=== PATIENT | female | born 1975 | race African-American/Black ===

== ENCOUNTER → 2020-11-30 08:24 | Outpatient (CLI) | payer OTHER, SELFPAY ==
[2020-11-30] MEDS: COVID-19 VACC #1, MRNA(MOD) 100 MCG/0.5 ML VIAL IM (08:34)
== END ==
PROVIDERS: Family Provider Nurse Practitioner Family; PCP Nurse Practitioner Family; Visit Provider Internal Medicine
DX: Z23 Encounter for immunization (principal)
CPT/HCPCS: 0011A; 91301

== ENCOUNTER → 2020-12-28 08:20 | Outpatient (CLI) | payer OTHER, SELFPAY ==
[2020-12-28] MEDS: COVID-19 VACC #2, MRNA(MOD) 100 MCG/0.5 ML VIAL IM (08:26)
== END ==
PROVIDERS: Family Provider Nurse Practitioner Family; PCP Nurse Practitioner Family; Visit Provider Internal Medicine
DX: Z23 Encounter for immunization (principal)
CPT/HCPCS: 0012A; 91301

== ENCOUNTER → 2024-04-08 07:15 | Outpatient (CLI) | payer OTHER, SELFPAY ==
[2024-04-08 08:50] LABS: HEMOLYSIS < 15 (0-50); Iron 13 ug/dL (37-170)
[2024-04-08 08:56] LABS: Add Manual Diff / Slide Review NO; Basophils Absolute Auto 100 /uL (0-100); Basophils Percent Auto 1.7 % (0-2); Eosinophils Absolute Auto 100 /uL (0-450); Eosinophils Percent Auto 1.5 % (2-4); Lymphocytes Absolute Auto 1700 /uL (1100-4500); Lymphocytes Percent Auto 45.7 % (25-40); Mean Corpuscular HGB Conc 26.8 % (30-36); Mean Corpuscular Hemoglobin 13.8 PG (26-34); Mean Corpuscular Volume 51.5 fL (80-100); Monocytes Absolute Auto 300 /uL (0-900); Monocytes Percent Auto 9.1 % (3-14); Neutrophils Absolute Auto 1600 /uL (1500-7000); Platelet Count 110 X10^3/uL (150-400); Red Blood Cell Count 3.09 X10^6/uL (4.0-5.2); Red Cell Distribution Width 21.1 % (11.6-14.8); White Blood Cell Count 3.8 X10^3/uL (4.5-11.0)
[2024-04-08 08:58] LABS: Cholesterol 133 mg/dL (140-199); HDL Cholesterol 59 mg/dL (40-60); LDL Cholesterol Calculated 66 mg/dL (<100); Triglycerides 42 mg/dL (35-150)
[2024-04-08 09:02] LABS: Hematocrit 15.9 % (36-46); Hemoglobin 4.3 g/dL (12.0-16.0)
[2024-04-08 09:03] LABS: Percent Iron Saturation 2 % (15-50); Total Iron Binding Capacity 525 ug/dL (265-497); Transferrin 419 mg/dL (206-381)
[2024-04-08 09:05] LABS: Anisocytosis 2+; Microcytosis 3+
[2024-04-08 09:06] LABS: Hypochromasia 3+
[2024-04-08 09:07] LABS: Ovalocytes 1+; RBC Morphology See
[2024-04-08 09:36] LABS: Ferritin 3 ng/mL (6-137)
== END ==
PROVIDERS: Family Provider Nurse Practitioner Family; PCP Family Medicine; Referring Provider Family Medicine; Visit Provider Family Medicine
DX: R53.83 Other fatigue (principal); Z13.220 Encounter for screening for lipoid disorders
CPT/HCPCS: 36415; 80061; 82728; 83540; 83550; 85025

== ENCOUNTER 2024-05-17 12:53 | Emergency (ER) | payer OTHER, SELFPAY ==
[2024-05-17 12:58] VITALS: BP 93/57; PULSE 76; RESP 16; TEMP 36.8; O2SAT 99; BMI 28.5
[2024-05-17 13:10] VITALS: BP 100/57
[2024-05-17 13:11] VITALS: PULSE 87; RESP 19; O2SAT 100
--- NOTE | 2024-05-17 13:11 | ED.ALLEREA ---
HPI - Allergic Reaction General Chief complaint: Allergic Reaction Stated complaint: Allergic Reaction Time Seen by Provider: 05/17/24 13:10 Source: patient Mode of arrival: Wheelchair History of Present Illness HPI narrative: Patient is a 49-year-old female past medical history of iron-deficiency anemia comes into the ED from iron infusion clinic for evaluation of allergic reaction. She states that she had her 1st iron infusion at around 10:00 a.m. today, states that she started having some swelling to her bilateral upper and lower extremities but denies any difficulty breathing denies any other issues. States that she has only known allergy of bee stings but denies any known bee stings. States that at the infusion center she was given 125 Solu-Medrol and 50 of Benadryl. At time of initial evaluation patient stating that her swelling is still there but is slightly improved, patient is speaking full sentences protecting airway no voice change no trismus no stridor tolerating secretions. Is complaining of some mild nausea. Related Data Home Medications Medication Instructions Recorded Confirmed cetirizine 10 mg capsule (Zyrtec) 10 mg PO DAILY PRN 03/29/24 04/09/24 Previous Rx's Medication Instructions Recorded sodium ferric gluconate complex in 250 mg IV QWEEK 4 doses 04/19/24 sucrose 62.5 mg/5 mL intravenous (Ferrlecit) epinephrine 0.3 mg/0.3 mL 0.3 mg (0.3 mL) IM Q5-15M PRN 05/17/24 injection, auto-injector (EpiPen) anaphylaxis #2 ea famotidine 20 mg tablet (Pepcid) 20 mg PO DAILY 5 days #5 tabs 05/17/24 prednisone 20 mg tablet 40 mg (2 x 20 mg) PO DAILY 5 days 05/17/24 #10 tabs Allergies Allergy/AdvReac Type Severity Reaction Status Date / Time No Known Drug Allergies Allergy Verified 04/09/24 09:02 Review of Systems Review of Systems Narrative: General: Allergic reaction, swelling to extremities HEENT: Denies headache, eye drainage, eye irritation, head trauma, sore throat, voice change Cardiovascular: Denies any chest pain, palpitations, shortness of breath, tachycardia Respiratory: Denies any shortness of breath, cough, wheeze, stridor GI/: Denies any abdominal pain, nausea, vomiting, diarrhea, bright red blood per rectum, melanotic stools, urinary frequency, urinary retention, dysuria, hematuria MSK: Denies any joint pain, muscle pains, swelling Skin: Denies any rashes, lesions, discoloration Neuro: Denies any headache, lightheadedness, dizziness, fainting, weakness Psych: Denies SI/HI Patient History Medical History (Updated 05/17/24 @ 14:14 by Ghulam Joel DO) Hypochromic microcytic anemia Systolic ejection murmur Social History Smoking Status: Former smoker Smoking Status: Former smoker alcohol intake frequency: a few times a month Substance Use Type: does not use Exam Narrative Exam Narrative: General: Cooperative, comfortable, well-developed, not in acute distress, there is mild edema noted to bilateral upper and lower extremity but no urticarial rashes noted HEENT: Normocephalic, atraumatic, PERRLA, normal sclera, eyelids normal, posterior oropharynx is clear without any signs of obstruction uvula is midline speaking in full sentences protecting airway and unfortunately no stridor no trismus tolerating secretions Neck: Active full range of motion, atraumatic Chest: Normal to inspection, negative crepitus, no overlying erythema ecchymosis Respiratory: Normal respiratory effort, not in acute respiratory distress, clear to auscultation bilaterally negative cough, wheeze, tachypnea, rhonchi, rales Cardiology: Regular rate rhythm negative gallop, murmur, rubs GI/: Normal to inspection, soft, nonrigid, no tenderness to palpation, exam deferred MSK: Full range of active range of motion of all 4 extremities, atraumatic Skin: No rashes lesions noted Neuro: Alert awake oriented x3, moves all 4 extremities spontaneously, cranial nerves intact, able to answer all questions appropriately follows commands appropriately Psych: Cooperative, negative suicidal or homicidal ideations Initial Vital Signs Initial Vital Signs: Vital Signs Temperature 98.3 F 05/17/24 12:58 Pulse Rate 76 05/17/24 12:58 Respiratory Rate 16 05/17/24 12:58 Blood Pressure 93/57 L 05/17/24 12:58 Pulse Oximetry 99 05/17/24 12:58 Oxygen Delivery Method Room Air 05/17/24 12:58 Course Orders Ordered: ED Orders 05/17/24 13:13 CBC Auto Diff [Complete Blood Count AUTO DIFF] Stat CMP [Comprehensive Metabolic Panel] Stat Famotidine (Famotidine 20 Mg/2 Ml Vial) [address] Last Admin: 05/17/24 13:19 Dose: 20 mg Documented By: Discontinued Medications Ondansetron HCl (Ondansetron 4 Mg/2 Ml Inj) 4 mg IV NOW ONE Stop: 05/17/24 13:13 Last Admin: 05/17/24 13:19 Dose: 4 mg Documented By: Vital Signs Vital signs: Vital Signs - 8 hr 05/17/24 12:58 05/17/24 13:10 05/17/24 13:11 Temperature 98.3 F Pulse Rate 76 87 Respiratory Rate 16 19 Blood Pressure 93/57 L 100/57 L Pulse Oximetry 99 100 Oxygen Delivery Method Room Air 05/17/24 13:30 05/17/24 13:30 05/17/24 14:00 Temperature Pulse Rate 70 Respiratory Rate 13 Blood Pressure 104/70 106/60 Pulse Oximetry 100 Oxygen Delivery Method 05/17/24 14:00 Temperature Pulse Rate 71 Respiratory Rate 17 Blood Pressure Pulse Oximetry 100 Oxygen Delivery Method MDM - Allergic Reaction Lab Data 05/17/24 13:13 05/17/24 13:13 Labs: Lab Results 05/17/24 Range/Units 13:13 WBC 10.7 (4.5-11.0) X10^3/uL RBC 5.15 (4.0-5.2) X10^6/uL Hgb 7.7 L (12.0-16.0) g/dL Hct 28.0 L (36-46) % MCV 54.4 L (80-100) fL MCH 15.0 L (26-34) PG MCHC 27.5 L (30-36) % RDW 23.4 H (11.6-14.8) % Plt Count 73 L (150-400) X10^3/uL Neut % (Auto) Not Reportable Lymph % (Auto) Not Reportable [place]val % (Auto) Not Reportable Eos % (Auto) Not Reportable Baso % (Auto) Not Reportable Lymph # (Auto) Not Reportable [place] # (Auto) Not Reportable Baso # (Auto) Not Reportable Total Counted 100 Seg Neutrophils % 44.0 (38-70) % Lymphocytes % (Manual) 51.0 H (25-45) % Monocytes % (Manual) 2.0 (2-11) % Eosinophils % (Manual) 1.0 L (2-4) % Basophils % (Manual) 2.0 H (0-1) % Neutrophils # (Manual) 4708 (6306-2871) /uL RBC Morphology See below Hypochromasia 3+ H Anisocytosis 3+ H Microcytosis 2+ H Target Cells 2+ H Acanthocytes (Spur) 1+ H Sodium 135 L (137-145) mmol/L Potassium 3.9 (3.4-5.1) mmol/L Chloride 107 (98-107) mmol/L Carbon Dioxide 19 L (22-32) mmol/L BUN 11 (7-17) mg/dL Creatinine 0.75 (0.52-1.04) mg/dL Estimated GFR > 60 (>60) mL/min BUN/Creatinine Ratio 14.7 (6-22) Glucose 149 H (70-100) mg/dL Calcium 9.1 (8.4-10.2) mg/dL Total Bilirubin 0.4 (0.2-1.3) mg/dL AST 25 (14-36) IU/L ALT 15 (<35) IU/L Alkaline Phosphatase 50 (38-126) U/L Total Protein 7.0 (6.3-8.2) g/dL Albumin 3.9 (3.5-5.0) g/dL Globulin 3.1 (1.7-4.1) g/dL Albumin/Globulin Ratio 1.3 (1.0-2.8) MDM Narrative Medical decision making narrative: Patient is a 49-year-old female with history of iron deficient anemia comes in for allergic reaction, patient just had her 1st iron transfusion prior to arrival, did receive Solu-Medrol and Benadryl, states that when she was getting the transfusion she started having urticarial rash and swelling. She presents here with persistent swelling to her extremities but no rash no difficulty breathing, lab work showing persistent iron deficient anemia but not requiring any transfusion. Patient will be sent home with EpiPen Solu-Medrol Pepcid Benadryl for allergic reaction she is safe for discharge home with outpatient follow-up Discharge Plan Departure Patient Disposition: Home Clinical Impression: Allergic reaction Instructions: Epinephrine Injection Activity Restrictions/Additional Instructions: Please follow-up with your primary care doctor Please read the discharge instructions sheet carefully and bring all papers to all doctor follow-up visits, as it may contain information that your doctor may want to see. Disease processes change and evolve, if your symptoms worsen or if you develop any new symptoms that are concerning to you please return for evaluation. Your evaluation today does not show any evidence of any life-threatening/serious illnesses requiring admission to the hospital or surgery. Please follow-up with your doctor for re-evaluation in approximately 1 day. Seek immediate medical attention for any worrisome symptoms. Prescriptions: New prednisone 20 mg tablet 40 mg PO DAILY 5 Days Qty: 10 0RF famotidine [Pepcid] 20 mg tablet 20 mg PO DAILY 5 Days Qty: 5 0RF epinephrine [EpiPen] 0.3 mg/0.3 mL auto-injector 0.3 mg IM Q5-15M PRN (Reason: anaphylaxis) Qty: 2 0RF Rx Instructions: do not exceed 3 doses per episode No Action Zyrtec 10 mg capsule 10 mg PO DAILY PRN sodium ferric gluconat-sucrose [Ferrlecit] 62.5 mg/5 mL solution 250 mg IV QWEEK Rx Instructions: Give IV over 1 hour Referrals: Chantale Andersen MD [Primary Care Provider] - Stand Alone Forms: Patient Portal/API
[2024-05-17] MEDS: ONDANSETRON 4 MG/2 ML INJ IV (13:19)
[2024-05-17] MEDS: FAMOTIDINE 20 MG/2 ML VIAL IV (13:19)
[2024-05-17 13:22] LABS: Hemoglobin 7.7 g/dL (12.0-16.0); Mean Corpuscular HGB Conc 27.5 % (30-36); Mean Corpuscular Volume 54.4 fL (80-100); Platelet Count 73 X10^3/uL (150-400); Red Blood Cell Count 5.15 X10^6/uL (4.0-5.2); Red Cell Distribution Width 23.4 % (11.6-14.8); White Blood Cell Count 10.7 X10^3/uL (4.5-11.0)
[2024-05-17 13:23] LABS: Add Manual Diff / Slide Review YES
[2024-05-17 13:30] VITALS: BP 104/70; PULSE 70; RESP 13; O2SAT 100
[2024-05-17 13:51] LABS: Alanine Aminotransferase 15 IU/L (<35); Albumin 3.9 g/dL (3.5-5.0); Albumin Globulin Ratio 1.3 (1.0-2.8); Alkaline Phosphatase 50 U/L (38-126); Aspartate Aminotransferase 25 IU/L (14-36); BUN Creatinine Ratio 14.7 (6-22); Bilirubin Total 0.4 mg/dL (0.2-1.3); Blood Urea Nitrogen 11 mg/dL (7-17); Calcium 9.1 mg/dL (8.4-10.2); Carbon Dioxide 19 mmol/L (22-32); Chloride 107 mmol/L (98-107); Estimated Glomerular Filt Rate > 60 mL/min (>60); Globulin 3.1 g/dL (1.7-4.1); Glucose 149 mg/dL (70-100); HEMOLYSIS < 15 (0-50); Potassium 3.9 mmol/L (3.4-5.1); Sodium 135 mmol/L (137-145)
[2024-05-17 14:00] VITALS: BP 106/60; PULSE 71; RESP 17; O2SAT 100
[2024-05-17 14:01] LABS: Neutrophils Absolute Manual 4708 /uL (3000-5900); Total Cells Counted 100
[2024-05-17 14:03] LABS: Anisocytosis 3+; Hypochromasia 3+; Target Cells 2+
[2024-05-17 14:06] LABS: Acanthocytes 1+; Microcytosis 2+
== END 2024-05-17 14:33 | disposition home or self-care (01) ==
PROVIDERS: Emergency Provider Student in an Organized Health Care Education/Training Program; Family Provider Nurse Practitioner Family; PCP Family Medicine
DX: R21 Rash and other nonspecific skin eruption (principal); T45.4X5A Adverse effect of iron and its compounds, initial encounter
CPT/HCPCS: 80053; 85007; 85025; 96365; 96366; 96375; 99283; 99284; J1200; J2405; J2916; J2919

== ENCOUNTER → 2024-05-20 07:20 | Outpatient (CLI) | payer OTHER, SELFPAY ==
[2024-05-20 08:24] LABS: Add Manual Diff / Slide Review NO; Basophils Absolute Auto 100 /uL (0-100); Basophils Percent Auto 1.2 % (0-2); Eosinophils Absolute Auto 0 /uL (0-450); Eosinophils Percent Auto 0.2 % (2-4); Lymphocytes Absolute Auto 3100 /uL (1100-4500); Lymphocytes Percent Auto 32.8 % (25-40); Mean Corpuscular HGB Conc 28.4 % (30-36); Mean Corpuscular Hemoglobin 16.1 PG (26-34); Mean Corpuscular Volume 56.5 fL (80-100); Monocytes Absolute Auto 500 /uL (0-900); Monocytes Percent Auto 5.3 % (3-14); Neutrophils Absolute Auto 5800 /uL (1500-7000); Neutrophils Percent Auto 60.5 % (50-75); Platelet Count 162 X10^3/uL (150-400); Red Blood Cell Count 3.55 X10^6/uL (4.0-5.2); Red Cell Distribution Width 23.1 % (11.6-14.8); White Blood Cell Count 9.6 X10^3/uL (4.5-11.0)
[2024-05-20 08:28] LABS: Hemoglobin 5.7 g/dL (12.0-16.0)
[2024-05-20 10:22] LABS: Anisocytosis 3+; Microcytosis 3+; Ovalocytes 2+; Platelet Estimate Decreased on smear
[2024-05-20 10:23] LABS: Hypochromasia 3+; Spherocytes 1+
== END ==
PROVIDERS: Family Provider Nurse Practitioner Family; PCP Family Medicine; Referring Provider Family Medicine; Visit Provider Family Medicine
DX: D64.9 Anemia, unspecified (principal); R79.89 Other specified abnormal findings of blood chemistry
CPT/HCPCS: 36415; 85025

== ENCOUNTER → 2024-08-04 07:39 | Outpatient (CLI) | payer OTHER, SELFPAY ==
[2024-08-04 08:57] LABS: HEMOLYSIS < 15 (0-50); Iron 45 ug/dL (37-170)
[2024-08-04 08:59] LABS: Add Manual Diff / Slide Review NO; Basophils Absolute Auto 100 /uL (0-100); Basophils Percent Auto 1.9 % (0-2); Eosinophils Absolute Auto 100 /uL (0-450); Eosinophils Percent Auto 3.1 % (2-4); Hemoglobin 10.9 g/dL (12.0-16.0); Lymphocytes Absolute Auto 1200 /uL (1100-4500); Lymphocytes Percent Auto 33.3 % (25-40); Mean Corpuscular HGB Conc 31.2 % (30-36); Mean Corpuscular Hemoglobin 24.4 PG (26-34); Mean Corpuscular Volume 78.3 fL (80-100); Monocytes Absolute Auto 200 /uL (0-900); Monocytes Percent Auto 6.3 % (3-14); Neutrophils Absolute Auto 2000 /uL (1500-7000); Neutrophils Percent Auto 55.4 % (50-75); Platelet Count 146 X10^3/uL (150-400); Red Blood Cell Count 4.47 X10^6/uL (4.0-5.2); Red Cell Distribution Width 27.5 % (11.6-14.8); White Blood Cell Count 3.6 X10^3/uL (4.5-11.0)
[2024-08-04 09:10] LABS: Percent Iron Saturation 13 % (15-50); Total Iron Binding Capacity 342 ug/dL (265-497); Transferrin 319 mg/dL (206-381)
[2024-08-04 09:31] LABS: Microcytosis 1+; Ovalocytes 1+
[2024-08-04 09:32] LABS: Anisocytosis 3+; Hypochromasia 1+
== END ==
PROVIDERS: Family Provider Nurse Practitioner Family; PCP Family Medicine; Referring Provider Family Medicine; Visit Provider Family Medicine
DX: D50.9 Iron deficiency anemia, unspecified (principal)
CPT/HCPCS: 36415; 83540; 83550; 85025

== ENCOUNTER → 2024-08-26 06:54 | Outpatient (CLI) | payer OTHER, SELFPAY ==
--- NOTE | 2024-08-26 06:55 | DI.US.S_ITS ---
PROCEDURE: US PELVIC COMPLETE INDICATIONS: Menorhagia, assess for fibroids etc TECHNIQUE: Real-time scanning was performed of the pelvic organs, with image documentation. Additional endovaginal scanning was necessary due to incomplete visualization of the adnexal and endometrial structures by transabdominal scanning. COMPARISON: None. FINDINGS: Uterus: Uterus is retroverted and enlarged in size at 13.6 x 10.9 x 8.5 cm. The myometrium is heterogeneous. The endometrium measures 15 mm combined thickness. There are 2 polyps within the endometrium, measuring 0.8 x 0.9 x 0.6 cm and 1.0 x 0.9 x 0.9 cm. Additionally, there are multiple uterine fibroids. Most notably, there is an intramural fibroid with a submucosal interface measuring 7.9 x 8.2 x 6.4 cm. Ovaries: The right ovary measures 3.9 x 3.0 x 1.7 cm, with a calculated ovarian volume of 10 cc. The left ovary measures 3. 0.2 x 2.1 x 1.6 cm, with a calculated ovarian volume of 6 cc. The ovaries have a normal sonographic appearance. Less than 12 follicles can be seen in each ovary. No adnexal masses are seen. Other: No pathologic free abdominal or pelvic fluid. IMPRESSION: Enlarged uterus containing multiple uterine fibroids, largest measuring 8.2 x 7.9 x 6.4 cm, with a submucosal interface. Additionally, there are 2 filling defects within the endometrium, concerning for polyps. Tissue sampling should be considered. We strive to produce accurate, complete, and clear reports of imaging services. To assist us in improving patient care, this report was composed using standard report templates and voice recognition software. Therefore, it may contain abnormal punctuation, insertions and/or omissions. Occasional wrong-word or sound-alike substitutions may occur. Though we review the report and make efforts to correct it, we do recommend that the report be read carefully in proper context to recognize any text inaccuracies. Dictated by: Alejandro Atkinson M.D. on 08/26/2024 at 17:57 Approved by: Alejandro Atkinson M.D. on 08/26/2024 at 17:59
== END ==
PROVIDERS: Family Provider Nurse Practitioner Family; PCP Family Medicine; Referring Provider Family Medicine; Visit Provider Family Medicine
DX: N92.0 Excessive and frequent menstruation with regular cycle (principal); D25.1 Intramural leiomyoma of uterus
CPT/HCPCS: 76830; 76856

== ENCOUNTER 2024-11-04 10:04 | Day surgery (SDC) | payer OTHER, SELFPAY ==
[2024-11-04 10:28] VITALS: BP 137/77; PULSE 85; RESP 16; TEMP 37.2; O2SAT 100
[2024-11-04] MEDS: LACTATED RINGERS 1,000 ML 42 ML IV (10:35)
--- NOTE | 2024-11-04 10:49 | P.HP_ITS ---
History of Present Illness History of Present Illness Date Patient Seen: 11/04/24 Time Patient Seen: 10:49 Chief complaint: Colonoscopy Narrative: García is a 49-year-old woman on for a colonoscopy today. She did have a colonoscopy many years ago and a polyp was removed. She has a family history of colon cancer. Her father of colon cancer at age 49. [facility] Medical History (Updated 11/04/24 @ 10:50 by Forest Grant MD) Menorrhagia Hypochromic microcytic anemia Systolic ejection murmur Social History Smoking Status: Former smoker Meds Home Medications and Allergies Home Medications Medication Instructions Recorded Confirmed Type cetirizine 10 mg capsule (Zyrtec) 10 mg PO DAILY PRN allergies 03/29/24 11/04/24 History epinephrine 0.3 mg/0.3 mL 0.3 mg (0.3 mL) IM Q5-15M PRN 05/17/24 11/04/24 Rx injection, auto-injector (EpiPen) anaphylaxis #2 ea iron sucrose 200 mg iron/10 mL 200 mg (10 mL) IV QWEEK 5 doses 05/20/24 Rx intravenous solution (Venofer) peg 3350-electrolytes 236 240 ml PO Q10M #4,000 mL 09/28/24 11/04/24 Rx gram-22.74 gram-6.74 gram-5.86 gram solution (Golytely) Allergies Allergy/AdvReac Type Severity Reaction Status Date / Time sodium ferric gluconate Allergy Verified 11/04/24 10:25 complex [From Ferrlecit] sucrose [From Ferrlecit] Allergy Verified 11/04/24 10:25 Exam Vital Signs (past 8 hours): - 11/04/24 10:28 Temperature 99 F Pulse Rate 85 Respiratory Rate 16 Blood Pressure 137/77 Pulse Oximetry 100 Oxygen Delivery Method Room Air Oxygen Flow Rate 0 Oxygen Delivery Method Room Air Oxygen Flow Rate 0 Const General: healthy appearing Resp Effort & Inspection: normal respiratory effort Assessment & Plan Assessment and plan (1) Family history of colon cancer: Status: Acute Plan Colonoscopy for family history of colon cancer and personal history of colon polyps. Time-Based Coding :: [TOTAL MINUTES] spent with patient and on the chart (including review of chart, obtaining history, exam, reviewing outside data, placing orders, documenting exam and treatment plan, and counseling patient) on [DATE]. [employer] Document charge(s): No
[2024-11-04 11:21] VITALS: BP 91/39; PULSE 56; RESP 14; TEMP 36.3; O2SAT 100
--- NOTE | 2024-11-04 11:23 | PM.OP.COLON ---
Operative Date/Time/Diagnoses Date of procedure: 11/04/24 Time of procedure: 11:23 Pre-op diagnosis: Family history of colon cancer Post-op diagnosis: same Procedure & Clinicians Study performed: Colonoscopy Same procedure as scheduled: Yes Surgeon: Forest Grant Procedure Notes Procedure in detail: Surgeon: Forest Grant MD Anesthesia: Val Armando CRNA Procedure: The patient was brought to the endoscopy suite, placed in left lateral decubitus position. The patient was connected to monitoring devices. A time-out was performed. Sedation was administered. Once the patient was adequately sedated, a digital rectal exam was performed and was normal. The scope was then inserted and advanced to the cecum where the appendiceal orifice was identified and photographed. The scope was then slowly withdrawn over greater than 6 minutes. The mucosa was thoroughly inspected. No abnormalities were found. The scope was retroflexed in the rectum. The scope was straightened and removed. The patient was awakened and brought to recovery. Scope withdrawal time: 8 minutes Sedation time: 16 minutes EBL: 0 Findings: Normal colon Post-procedure Recommendations: Colonoscopy in 5 years Disposition: PACU
[2024-11-04 11:24] VITALS: BP 95/61; PULSE 62; RESP 15; O2SAT 97
[2024-11-04 11:25] VITALS: BP 98/46; PULSE 63; RESP 16; O2SAT 100
[2024-11-04 11:35] VITALS: BP 96/51; PULSE 60; RESP 17; O2SAT 100
== END 2024-11-04 12:00 | disposition home or self-care (01) ==
PROVIDERS: Family Provider Nurse Practitioner Family; PCP Family Medicine; Referring Provider Surgery; Visit Provider Surgery
PROC: 0DJD8ZZ Inspection of Lower Intestinal Tract, Via Natural or Artificial Opening Endoscopic (ICD-10-PCS; CPT 45378; principal; 2024-11-04 11:15)
DX: Z12.11 Encounter for screening for malignant neoplasm of colon (principal); Z80.0 Family history of malignant neoplasm of digestive organs; Z87.891 Personal history of nicotine dependence; Z86.0100 Personal history of colon polyps, unspecified
CPT/HCPCS: 45378; J2704

== ENCOUNTER 2025-01-03 06:27 | Day surgery (SDC) | payer OTHER, SELFPAY ==
[2024-12-28 07:17] VITALS: BMI 27.9
[2025-01-03] VITALS (10 sets, daily range): BP systolic 92–139; BP diastolic 39–78; PULSE 65–83; RESP 10–18; TEMP 36.2–36.4; O2SAT 94–100; BMI 27.9
--- NOTE | 2025-01-03 | PATH_ITS ---
[facility] Accession Number: [id number] No. of containers..01 Tissue . 01 Material submitted: . uterus - UTERUS,BILATERAL FALLOPIAN TUBES . 01 Diagnosis: UTERUS, BILATERAL FALLOPIAN TUBES; SUPRACERVICAL HYSTERECTOMY AND BILATERAL SALPINGECTOMY: Uterine weight (fragmented uterus): 586 grams. Secretory phase endometrium, without atypia, hyperplasia, or malignancy. Adenomyosis present. Intramural leiomyomas, benign, without significant cytologic atypia, increased mitotic activity, or necrosis. Benign bilateral fallopian tubes and paratubal cysts. Negative for atypia, or malignancy. [facility] 01/05/2025 1732 Local . 01 Electronically signed: . Rocio Greco MD, Pathologist NPI- [id number] . 01 Gross description: . Received in formalin with two identifiers and uterus, bilateral fallopian tubes, is a fragmented uterus (586 grams, 18.9 x 18.4 x 7.2 cm in aggregate), with two detached unoriented fimbriated fallopian tubes (4.9 x 0.6 cm and 2.7 x 0.6 cm), with no cervix or additional adnexa. . The serosa is ghosh and wrinkled with no adhesion identified. The presumed endometrium is pink-ghosh and velvety and averages 0.1 cm thick. The myometrium is ghosh and mildly trabecular with multiple fragmented white whorled areas measuring up to 7.9 cm in greatest dimension with no hemorrhage or necrosis identified. . Both tubes have ghosh smooth serosa with cysts up to 0.4 cm in greatest dimension filled with clear serous fluid. The lumen are stellate and unremarkable. . [employer] T[employer] sections are submitted as follows: A1: Endometrium. A2-A3: White whorled areas. A4: Longer fallopian tube to include one-half of bisected fimbriae and corss-sections. A5: [place]land fallopian tube to include one-half of bisected dimbriae and cross-sections. ([id number]) /[facility] 01/04/2025 0937 Local . 01 Pathologist provided ICD-10: N92.0, D25.9, D50.9 . 01 CPT . 229475 Specimen Comment: A courtesy copy of this report has been sent to [phone] Performed at: [address] [id number] MD Adalberto Knight MD Phone: [phone]
[2025-01-03] MEDS: LACTATED RINGERS 1,000 ML 21 ML IV ×3 (07:04→12:00)
[2025-01-03] MEDS: ACETAMINOPHEN IV 1,000 MG/100 ML VIAL 400 MG IV (07:04)
[2025-01-03] MEDS: SCOPOLAMINE 1 PATCH TOP (07:05)
--- NOTE | 2025-01-03 07:51 | PM.GYNHP.1 ---
History of Present Illness History of Present Illness Reason for admission: vaginal bleeding Narrative: García Iglesias is a 49 year old female 3 para 2 who presents for a laparoscopic supracervical hysterectomy with bilateral salpingectomy due to fibroids, menorrhagia, and anemia. [facility] Medical History Endometrial thickening on ultrasound Uterine fibroid Menorrhagia Hypochromic microcytic anemia Systolic ejection murmur Surgical History [place] teeth extracted Social History household members: significant other Smoking Status: Former smoker Meds Home Medications and Allergies Home Medications Medication Instructions Recorded Confirmed Type cetirizine 10 mg capsule (Zyrtec) 10 mg PO DAILY PRN allergies 03/29/24 01/03/25 History Allergies Allergy/AdvReac Type Severity Reaction Status Date / Time sodium ferric gluconate Allergy Verified 01/03/25 06:50 complex [From Ferrlecit] sucrose [From Ferrlecit] Allergy Verified 01/03/25 06:50 Exam Vital Signs (past 8 hours): - 01/03/25 06:51 Temperature 97.2 F L Pulse Rate 78 Respiratory Rate 16 Blood Pressure 139/77 Pulse Oximetry 99 Oxygen Delivery Method Room Air Oxygen Delivery Method Room Air Narrative Exam Narrative: HEENT: No thyromegaly, no anterior cervical or supraclavicular lymphadenopathy. Lungs:Clear to auscultation bilaterally, no wheezes. Cardiovascular: Regular rate and rhythm, no murmurs, rubs, or gallops. Abdomen: No scars. No hepatosplenomegaly. No masses palpable. External genitalia: Normal Vagina: Normal Cervix: Normal Bimanual exam: 13 Week size multifibroid uterus. Mobile. Extremities: No edema Assessment & Plan Assessment & Plan narrative: Assessment: 49-year-old 3 para 2 with an enlarged fibroid uterus, menorrhagia, and anemia Plan: Laparoscopic supracervical hysterectomy with bilateral salpingectomy. The risks, benefits, and alternatives to the procedure were explained to the patient. The risks including bleeding, infection, injury to the bowel, bladder, or ureters. She also understands that there is a possibility of an open procedure. She understands these risks and agrees to proceed. A full par Q was held and consent form was signed. Time-Based Coding :: [TOTAL MINUTES] spent with patient and on the chart (including review of chart, obtaining history, exam, reviewing outside data, placing orders, documenting exam and treatment plan, and counseling patient) on [DATE].
--- NOTE | 2025-01-03 07:54 | PM.PREOP ---
Pre-operative Note Interval Note History & Physical reviewed/Exam performed by Physician: Yes Changes to H&P: No H&P completed within 30 days and has changed as indicated here:: 01/03/25
[2025-01-03] MEDS: CEFAZOLIN 2 GM/100 ML PREMIX 100 ML IV (08:10)
--- NOTE | 2025-01-03 08:30 | SUR.OPER ---
Lithotomy on padded OR bed. Toad Hop Pad Positioner under torso. Head on pillow, arms padded and tucked at sides. Legs secured in padded yellow fins stirrups.
[2025-01-03] MEDS: BUPIVACAINE 0.5% W/ EPI (PF) 30 ML VIAL INJ (08:39)
[2025-01-03] MEDS: ROPIVACAINE 0.2% PF 2 MG/ML 10ML AMP 20 ML INJ (10:00)
--- NOTE | 2025-01-03 10:11 | P.OP_ITS ---
Operative Date/Time/Diagnoses Date of procedure: 01/03/25 Time of procedure: 10:11 Pre-op diagnosis: Fourteen week size multifibroid uterus Menorrhagia Anemia Post-op diagnosis: same Procedure & Clinicians Procedure: Procedures Operation Date: 01/03/25 07:45 Actual Procedure Side Surgeon p Laparoscopic Supracervical Hysterectomy with bilateral salpingectomy Trish Holly MD Indications: 49-year-old with an enlarged fibroid uterus, menorrhagia, and anemia. Desires definitive therapy Surgeon: Trish Holly Farm Equipment Technician: Angie Harrell Anesthesia Type: General and Local Operative Notes Findings: 14 week size multifibroid uterus Normal tubes and ovaries Normal liver and gallbladder Normal appendix Closure Type: primary Specimen(s): left tube, right tube and uterus Applied: catheter (Removed at the end of the case) Estimated blood loss (mL): 75 Blood products transfused: none Procedure in detail: Informed consent had previously been obtained in the office. The patient was taken to the operating room where she was placed in the dorsal supine position. After adequate general endotracheal anesthesia was achieved, she was placed in the dorsal lithotomy position, and prepped and draped in the usual sterile fashion. A time-out was performed. A bivalve speculum was placed into the vagina and the anterior lip of the cervix was grasped with a single-tooth tenaculum. The cervical os was sequentially dilated until the Zumi uterine manipulator could pass easily into the endometrial cavity. The single-tooth tenaculum was removed from the anterior lip of the cervix. The bivalve speculum was removed from the vagina. Attention was then turned to the abdomen where 6 cc of 0.5% Marcaine with epinephrine were injected in the umbilical fold. A 5 mm incision was made. The Veress needle was placed into the peritoneal cavity, and its placement confirmed by aspiration and drop test. The abdominal cavity was insufflated with 3.3 L of CO2. The Veress needle was removed, and a 5 mm trocar was placed without difficulty. The cuff on the trocar was inflated with air. Initial inspection of the pelvis and abdomen revealed an enlarged fibroid uterus. Two other incisions were made 4 cm lateral to the midline at the level of the umbilicus after 6 cc of 0.5% Marcaine with epinephrine were injected. Two 5 mm trocars were placed under direct visualization. The right tube was grasped with an atraumatic grasper. Using the power seal, the mesosalpinx was cauterized and cut all the way down to the cornua of the uterus. The tube was removed through the trocar. The right cornua of the uterus was grasped with an atraumatic grasper. Using the power seal, the utero-ovarian vessels were cauterized and cut. The round ligament was cauterized and cut. The broad liga ment was cauterized and cut. The bladder flap was created using the power seal with cautery and cut retirement across. The uterine arteries on the right side were cauterized and cut. All of this was repeated on the patient's left side. There was blanching of the uterus. The Cookie loop was placed over the uterus and around the cervix, 2 cm above the uterosacral ligaments. The Zumi uterine manipulator was removed from the uterus, and a moistened sponge stick placed into the vagina. The uterus was amputated from the cervix. There was small amount of bleeding noted from the posterior edge of the cervix and this was cauterized for hemostasis. The endocervical canal was also cauterized. 6 cc of 0.5% Marcaine with epinephrine were injected above the pubic symphysis. A 12 mm incision was made. A 12 mm trocar was placed under direct visualization. The large Endo-Catch bag was placed through the suprapubic trocar. The uterus was placed into the bag. The trocar was removed and the edges of the bag were brought up through the skin. Using S retractors, the fascia was extended slightly on either side. The uterus was grasped with a Umer. The small Sage was placed into the bag. The uterus was morcellated in approximately 40 pieces. The bag was removed from the peritoneal cavity. The fascia on the suprapubic incision was closed with 0 Vicryl in a running fashion. Two simple interrupted sutures were placed in the subcutaneous layer using 3-0 Vicryl. The abdomen was re-insufflated with carbon dioxide gas. The pelvis was examined and irrigated. There was no bleeding noted. 20 cc of 0.2% ropivacaine were placed over the pedicles. The instruments were removed from the abdomen. The CO2 was allowed to escape. All of the incisions were closed with 4-0 Monocryl in a subcuticular fashion. Steri-Strips and Allevyn dressings were placed. The moistened sponge stick was removed from the vagina. Sponge, lap, and instrument counts were correct x2. The patient tolerated the procedure well, and was taken to PACU in stable condition. Complications: none Post-operative Condition: stable Disposition: PACU Plan for aftercare: Home after recovery
[2025-01-03] MEDS: OXYCODONE IR 5 MG TABLET PO (10:52)
[2025-01-03] MEDS: ONDANSETRON 4 MG/2 ML INJ IV ×2 (10:52→12:05)
[2025-01-03] MEDS: HYDROMORPHONE 1 MG INJ IV ×2 (10:52→11:07)
[2025-01-03] MEDS: hydrOXYzine 50 MG/ML INJ 25 MG IM (10:52)
[2025-01-03 10:53] LABS: Hematocrit 24.6 % (36-46)
--- NOTE | 2025-01-03 11:39 | SUR.PHASEII ---
Dr. Holly and SANDRA Neal notified [facility] 03/24. No new orders.
--- NOTE | 2025-01-03 12:07 | SUR.PHASEII ---
Patient reported mild nausea. IV fluids restarted. Zofran given.
== END 2025-01-03 13:31 | disposition home or self-care (01) ==
PROVIDERS: Family Provider Nurse Practitioner Family; PCP Family Medicine; Referring Provider Obstetrics & Gynecology; Visit Provider Obstetrics & Gynecology
PROC: 0UT94ZL Resection of Uterus, Supracervical, Percutaneous Endoscopic Approach (ICD-10-PCS; CPT 58544; principal; 2025-01-03 07:45)
DX: N92.0 Excessive and frequent menstruation with regular cycle (principal); D50.9 Iron deficiency anemia, unspecified; D25.1 Intramural leiomyoma of uterus; N83.8 Other noninflammatory disorders of ovary, fallopian tube and broad ligament
CPT/HCPCS: 58544; 85014; 85018; J0131; J0690; J1100; J1171; J2250; J2405; J2704; J2795; J3010; J3410

== ENCOUNTER → 2025-02-16 07:05 | Outpatient (CLI) | payer OTHER, SELFPAY ==
[2025-02-16 08:22] LABS: Hematocrit 27.5 % (36-46); Mean Corpuscular Hemoglobin 17.5 PG (26-34); Mean Corpuscular Volume 60.1 fL (80-100); Platelet Count 141 X10^3/uL (150-400); Red Blood Cell Count 4.57 X10^6/uL (4.0-5.2); Red Cell Distribution Width 20.5 % (11.6-14.8); White Blood Cell Count 3.8 X10^3/uL (4.5-11.0)
[2025-02-16 08:36] LABS: Add Manual Diff / Slide Review YES
[2025-02-16 08:39] LABS: Neutrophils Absolute Manual 1558 /uL (3000-5900); Total Cells Counted 100
[2025-02-16 08:40] LABS: Anisocytosis 1+; Hypochromasia 1+; Microcytosis 2+; Ovalocytes 1+
== END ==
PROVIDERS: Family Provider Nurse Practitioner Family; PCP Family Medicine; Referring Provider Obstetrics & Gynecology; Visit Provider Obstetrics & Gynecology
DX: D50.9 Iron deficiency anemia, unspecified (principal)
CPT/HCPCS: 36415; 85007; 85025

== ENCOUNTER → 2025-04-08 07:20 | Outpatient (CLI) | payer OTHER, SELFPAY ==
[2025-04-08 09:03] LABS: Add Manual Diff / Slide Review NO; Hematocrit 34.1 % (36-46); Hemoglobin 10.4 g/dL (12.0-16.0); Lymphocytes Absolute Auto 2000 /uL (1100-4500); Mean Corpuscular HGB Conc 30.5 % (30-36); Mean Corpuscular Hemoglobin 19.9 PG (26-34); Mean Corpuscular Volume 65.1 fL (80-100); Platelet Count 174 X10^3/uL (150-400)
[2025-04-08 10:27] LABS: Microcytosis 2+; Ovalocytes 1+
[2025-04-08 10:28] LABS: Anisocytosis 2+; Hypochromasia 1+; Poikilocytosis 1+; Target Cells 1+
== END ==
PROVIDERS: PCP Family Medicine; Referring Provider Family Medicine; Visit Provider Obstetrics & Gynecology
DX: D50.9 Iron deficiency anemia, unspecified (principal)
CPT/HCPCS: 36415; 85025

== ENCOUNTER → 2025-07-26 09:09 | Outpatient (CLI) | payer OTHER, SELFPAY ==
--- NOTE | 2025-07-26 09:10 | DI.MG.S_ITS ---
MM screening mammo BI: 07/26/2025. BI-RADS: 1 CLINICAL: 50-year old female for bilateral screening mammogram. Tyrer-Cuzick lifetime risk of 9.3%. No personal or first-degree family history of breast cancer. PRIOR EXAMS: None. This is a baseline mammogram. MAMMOGRAPHY TECHNIQUE: 2D and 3D (tomosynthesis) digital mammographic views obtained, with additional images as needed for full coverage. Current study was also evaluated with a Computer Aided Detection (CAD) system. DENSITY C. The breasts are heterogeneously dense, which may obscure small masses. MAMMOGRAPHY FINDINGS Bilateral: No suspicious mass, asymmetry, microcalcification, or other abnormality seen. IMPRESSION: * No evidence of malignancy. RECOMMENDATIONS Bilateral * Annual screening mammography. OVERALL ASSESSMENT CATEGORY BI-RADS-1: Negative. [employer] recommends annual screening mammography beginning at age 40 for women with average risk of breast cancer. ELECTRONICALLY SIGNED: Maday Douglas M.D. on 07/27/2025 at 09:08:30 AM PT Interpreting Station ID: [id number]
[2025-07-26 10:44] LABS: Add Manual Diff / Slide Review NO; Hematocrit 39.9 % (36-46); Hemoglobin 13.0 g/dL (12.0-16.0); Lymphocytes Absolute Auto 1900 /uL (1100-4500); Mean Corpuscular HGB Conc 32.5 % (30-36); Mean Corpuscular Hemoglobin 25.9 PG (26-34); Mean Corpuscular Volume 79.8 fL (80-100); Platelet Count 127 X10^3/uL (150-400)
== END ==
PROVIDERS: Obstetrics & Gynecology; PCP Family Medicine; Referring Provider Family Medicine; Visit Provider Family Medicine
DX: Z12.31 Encounter for screening mammogram for malignant neoplasm of breast (principal); N92.0 Excessive and frequent menstruation with regular cycle; D50.9 Iron deficiency anemia, unspecified; R92.333 Mammographic heterogeneous density, bilateral breasts
CPT/HCPCS: 36415; 77063; 77067; 85025